=== PATIENT | female | born 1995 | race Caucasian/White ===

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

== ENCOUNTER 2018-12-01 18:51 | Emergency (ER) | payer BC ==
[~2018-12-01] VITALS: Ht 154.9 cm; Wt 41.4 kg
[~2018-12-01 18:51] MED LIST changes: +DESYREL 50MG50 MG PO; +ZITHROMAX500 M2 PO
[2018-12-01 19:15] VITALS: BP 118/90; TEMP 98.4
[2018-12-01] MEDS ORDERED: ZOVIRAX400 MG PO (19:46)
[2018-12-01 20:17] LABS: BASO % 0.3 % (0.0-2.0); EOS % 0.3 % (0-4.0); GRAN # 5.9 (1.4-6.5); GRAN % 64.1 % (42.2-75.2); HEMATOCRIT 45.2 % (37.0-47.0); HEMOGLOBIN 16.4 g/dl (12.5-16.0); LYMPH # 2.7 (1.2-3.4); MEAN CELL VOLUME 89 fl (80.0-100.0); MEAN CORPUSCULAR HEMOGLOBIN 32 pg (27.0-31.0); MEAN CORPUSCULAR HGB CONC 36 g/dl (33.0-37.0); MEAN PLATELET VOLUME 9.5 fl (7.4-10.4); MONO # 0.5 (0.1-0.6); MONO % 5.9 % (1.7-9.3); PLATELET COUNT 325 K/mm3 (130-400); REDCELL DISTRIBUTION WIDTH-CV 11.2 % (11.5-14.5)
[2018-12-01 20:30] LABS: ALANINE AMINOTRANSFERASE 32 U/L (9-52); ALBUMIN 4.6 gm/dL (3.5-5.0); ALKALINE PHOSPHATASE 98 U/L (50-136); ANION GAP 15 mmol/L (7-16); AST,SGOT 29 U/L (15-37); BILIRUBIN,TOTAL 0.6 mg/dL (0.0-1.0); BLOOD UREA NITROGEN 14 mg/dL (7-17); CALCIUM 9.8 mg/dL (8.4-10.2); CARBON DIOXIDE 24 mmol/L (22-30); CHLORIDE 95 mmol/L (98-107); CREATININE, serum 0.35 (0.52-1.25); GLUCOSE 292 mg/dL (74-106); LIPASE 33 U/L (23-300); POTASSIUM 3.6 mmol/L (3.4-5.0); SODIUM 134 mmol/L (137-145); TOTAL PROTEIN 7.8 gm/dL (6.4-8.2)
[2018-12-01 20:40] LABS: ACETONE,SERUM NEGATIVE
[2018-12-01 21:55] LABS: COLLECTION METHOD CLEAN CATCH
[2018-12-01] MEDS ORDERED: FREESTYLE PREC1 EAC5 MC (21:55)
[2018-12-01] MEDS ORDERED: NOVOLOG FLEX100 U/ML SQ (21:55)
[2018-12-01] MEDS ORDERED: LANTUS100 U/ML SQ (21:55)
[2018-12-01 22:14] LABS: PH 5 (5-8); URINE APPEARANCE Hazy; URINE BACTERIA Rare /hpf; URINE BILIRUBIN Negative (NEGATIVE); URINE BLOOD Negative (NEGATIVE); URINE COLOR Yellow; URINE GLUCOSE 3+ (NEGATIVE); URINE KETONE 2+ (NEGATIVE); URINE LEUKOCYTE ESTERASE Negative (NEGATIVE); URINE NITRATE Positive (NEGATIVE); URINE PROTEIN(semi-quant) Negative (NEGATIVE); URINE RBC 0-2 /hpf; URINE UROBILINOGEN Negative (NEGATIVE)
[2018-12-01 23:20] VITALS: PULSE 108
== END 2018-12-01 23:20 | disposition home or self-care (01) ==
LOC: COL.ER 18:51
PROVIDERS: Emergency Medicine
DX: R07.89 Other chest pain (principal); E11.9 Type 2 diabetes mellitus without complications; Z79.4 Long term (current) use of insulin
CPT/HCPCS: J1815; J7030

== ENCOUNTER 2019-06-04 12:08 | Emergency (ER) | payer BC ==
[~2019-06-04] VITALS: Ht 154.9 cm; Wt 42.7 kg
[~2019-06-04 12:08] MED LIST changes: +FREESTYLE PREC1 EAC5 MC; +LANTUS100 U/ML SQ; +NOVOLOG FLEX100 U/ML SQ; +ZOVIRAX400 MG PO
[2019-06-04 12:35] VITALS: TEMP 98.5
[2019-06-04 12:54] LABS: COLLECTION METHOD CLEAN CATCH
[2019-06-04 12:58] LABS: BASO # 0.1 (0.0-0.2); BASO % 0.7 % (0.0-2.0); EOS # 0.1 (0.0-0.7); EOS % 1.9 % (0-4.0); HEMATOCRIT 46.2 % (37.0-47.0); HEMOGLOBIN 16.7 g/dl (12.5-16.0); LYMPH # 2.4 (1.2-3.4); LYMPH % 33.1 % (20.0-51.0); MEAN CELL VOLUME 87 fl (80.0-100.0); MEAN CORPUSCULAR HEMOGLOBIN 32 pg (27.0-31.0); MEAN CORPUSCULAR HGB CONC 36 g/dl (33.0-37.0); MEAN PLATELET VOLUME 9.3 fl (7.4-10.4); MONO # 0.7 (0.1-0.6); MONO % 8.9 % (1.7-9.3); PLATELET COUNT 349 K/mm3 (130-400); REDCELL DISTRIBUTION WIDTH-CV 11.4 % (11.5-14.5)
[2019-06-04 13:01] LABS: PH 6 (5-8); URINE APPEARANCE Clear; URINE BACTERIA None Seen /hpf; URINE BILIRUBIN Negative (NEGATIVE); URINE BLOOD Negative (NEGATIVE); URINE COLOR Yellow; URINE GLUCOSE 3+ (NEGATIVE); URINE KETONE 1+ (NEGATIVE); URINE LEUKOCYTE ESTERASE Negative (NEGATIVE); URINE NITRATE Negative (NEGATIVE); URINE PROTEIN(semi-quant) Negative (NEGATIVE); URINE RBC None Seen /hpf; URINE UROBILINOGEN Negative (NEGATIVE)
[2019-06-04 13:10] LABS: ALANINE AMINOTRANSFERASE 44 U/L (4-34); ALBUMIN 4.7 gm/dL (3.5-5.0); ALKALINE PHOSPHATASE 97 U/L (50-136); ANION GAP 12 mmol/L (7-16); AST,SGOT 33 U/L (15-37); BILIRUBIN,TOTAL 1.1 mg/dL (0.0-1.0); BLOOD UREA NITROGEN 16 mg/dL (7-17); CALCIUM 9.7 mg/dL (8.4-10.2); CARBON DIOXIDE 24 mmol/L (22-30); CHLORIDE 96 mmol/L (98-107); GLUCOSE 399 mg/dL (74-106); POTASSIUM 4.1 mmol/L (3.4-5.0); SODIUM 132 mmol/L (137-145); TOTAL PROTEIN 7.9 gm/dL (6.4-8.2)
[2019-06-04 13:24] LABS: ACETONE,SERUM NEGATIVE
[2019-06-04] MEDS ORDERED: ZITHROMAX Z PA250 MG PO (14:30)
[2019-06-04 14:58] VITALS: BP 112/86; PULSE 110
== END 2019-06-04 14:56 | disposition home or self-care (01) ==
LOC: COL.ER 12:08
PROVIDERS: Nurse Practitioner
DX: J40 Bronchitis, not specified as acute or chronic (principal); E10.9 Type 1 diabetes mellitus without complications; Z91.14 Patient's other noncompliance with medication regimen
CPT/HCPCS: J1815; J7030

== ENCOUNTER 2023-03-13 18:08 | Inpatient (IN) | payer OTHER ==
[~2023-03-13] VITALS: Ht 154.9 cm; Wt 53.9 kg
[~2023-03-13 18:08] MED LIST changes: +MACROBID 1100 MG/CAP PO; +ZITHROMAX Z PA250 MG PO; +ZOFRAN ODT4 MG PO
[2023-03-13] MEDS ORDERED: NS 1,000 ML IV ONE ×2 (20:00→20:15)
[2023-03-13] MEDS ORDERED: Ondansetron 4 MG/2 ML VIAL IV ONE ×2 (20:00→20:15)
[2023-03-13] MEDS ORDERED: Ibuprofen 400 MG TAB PO ONE (20:15)
[2023-03-13] MEDS ORDERED: Acetaminophen 500 MG TAB PO ONE (20:15)
[2023-03-13 20:50] LABS: HEMATOCRIT 40.4 % (37.0-47.0); HEMOGLOBIN 13.5 g/dl (12.5-16.0); MEAN CELL VOLUME 91 fl (80.0-100.0); MEAN CORPUSCULAR HEMOGLOBIN 30 pg (27-31); MEAN CORPUSCULAR HGB CONC 33 g/dl (33.0-37.0); MEAN PLATELET VOLUME 10.3 fl (7.4-10.4); PLATELET COUNT 257 K/mm3 (130-400); RED BLOOD COUNT 4.46 M/mm3 (4.10-5.30); REDCELL DISTRIBUTION WIDTH-CV 12.2 % (11.5-14.5)
[2023-03-13 21:03] LABS: TRICYCLIC ANTIDEPRESS URINE NEGATIVE (NEGATIVE)
[2023-03-13 21:09] LABS: ALANINE AMINOTRANSFERASE 27 U/L (0-55); ALBUMIN 3.1 gm/dL (3.5-5.0); ALKALINE PHOSPHATASE 109 U/L (40-150); ANION GAP 15 mmol/L (7-16); AST,SGOT 14 U/L (5-34); BILIRUBIN,TOTAL 0.6 mg/dL (0.2-1.2); BLOOD UREA NITROGEN 15 mg/dL (7-19); CALCIUM 8.2 mg/dL (8.4-10.2); CHLORIDE 97 mmol/L (98-107); CREATININE, serum 0.91 mg/dL (0.57-1.11); GLUCOSE 303 mg/dL (70-99); LIPASE < 7 U/L (8-78); POTASSIUM 4.1 mmol/L (3.5-4.5); SODIUM 125 mmol/L (136-145); TOTAL PROTEIN 6.5 gm/dL (6.2-8.1)
[2023-03-13 21:11] LABS: COLLECTION METHOD CLEAN CATCH
[2023-03-13] MEDS ORDERED: Insulin Human Regular/NS 100 ML IV ONE (21:15)
[2023-03-13 21:17] LABS: BAND 17 % (0-10); LYMPHOCYTE 6 % (20.0-51.0); NEUTROPHILS 73 % (42.0-75.2); PLATELET ESTIMATE NORMAL (NORMAL)
[2023-03-13 21:33] LABS: PH 5.5 (5.0-8.5); URINE APPEARANCE Cloudy (CLEAR/HAZY); URINE BLOOD 1+ (NEGATIVE); URINE COLOR Yellow (YELLOW); URINE GLUCOSE 2+ (NEGATIVE); URINE KETONE 4+ (NEGATIVE); URINE NITRATE Positive (NEGATIVE); URINE PROTEIN(semi-quant) 2+ (NEGATIVE); URINE UROBILINOGEN 0.2 E.U/dL (0.2-1.0)
[2023-03-13 21:36] LABS: URINE BACTERIA Many /hpf (NONE SEEN)
[2023-03-13 21:38] LABS: CARBON DIOXIDE 13 mmol/L (22-29)
[2023-03-13] MEDS ORDERED: cefTRIAXone 1 G in Water For Injection,Sterile 10 ML IV ONE (22:00)
[2023-03-13 22:15] LABS: ACETONE,SERUM MODERATE
[2023-03-13] MEDS ORDERED: NS 1,000 ML IV SCH (22:30)
[2023-03-13] MEDS ORDERED: Insulin Human Regular/NS 100 ML IV SCH (22:30)
[2023-03-13] MEDS ORDERED: metroNIDAZOLE 250 MG TAB PO ONE (22:45)
[2023-03-13] MEDS ORDERED: Acetaminophen 325 MG TAB PO PRN (23:00)
[2023-03-13 23:05] LABS: INR 1.2 (0.8-3.0); PROTHROMBIN TIME 12.8 SECONDS (9.7-12.8)
[2023-03-13 23:18] LABS: PHOSPHOROUS 2.5 mg/dL (2.3-4.7)
--- NOTE | 2023-03-13 23:31 | NUR ---
RECEIVED REPORT FROM ED NURSE, NORM.
[2023-03-13] MEDS ORDERED: METRONIDAZOLE IV ONE (23:45)
[2023-03-13 23:46] VITALS: BP 94/55; PULSE 104; TEMP 98.6
--- NOTE | 2023-03-13 23:46 | NUR ---
Patient arrives to ICU room 1 via ED stretcher. Patient is drowsy but alert and oriented. Initial BP of 94/55; all other vitals within normal limits. She arrives receiving insulin drip at 5 units/hr, see IV drip titrations. Initial BG of 199 - insulin drip put on standby for 30 mins according to protocol and will resume at 3 units/hr.
[2023-03-14] VITALS (78 sets, daily range): BP systolic 80–96; BP diastolic 47–70; PULSE 101–124; TEMP 98.1–99.5; O2SAT 80–100
--- NOTE | 2023-03-14 00:25 | NUR ---
During patient's suicide risk assessment, patient admits to having suicidal thoughts within the last week. Patient states she has thought of a plan in the past but has not acted on said plan nor does she currently have intention of self harm or suicide. Patient denies current thoughts of self harm or suicide. Vikki notified. Orders received.
[2023-03-14] MEDS ORDERED: D5NS 1,000 ML IV SCH (00:30)
--- NOTE | 2023-03-14 01:00 | NUR ---
Patient's belongings include street clothes, a cell phone, and a black wallet. Patient has a navel piercing and a nose piercing, both of which have jewelery in place. Patient denies having other removable jewelry on her person. She denies having dentures, partials, plates, or hearing aids. She states she does normally wear glasses but that she did not bring them with her.
[2023-03-14 01:49] LABS: CALCIUM 7.1 mg/dL (8.4-10.2); CREATININE, serum 0.71 mg/dL (0.57-1.11); POTASSIUM 3.3 mmol/L (3.5-4.5)
[2023-03-14 01:51] LABS: SALICYLATE < 5.0 mg/dL (15.0-30.0)
[2023-03-14 03:22] LABS: CALCIUM 6.9 mg/dL (8.4-10.2); CREATININE, serum 0.69 mg/dL (0.57-1.11)
[2023-03-14 03:24] LABS: POTASSIUM 2.9 mmol/L (3.5-4.5)
[2023-03-14] MEDS ORDERED: Potassium Chloride 100 ML IV SCH ×2 (03:30→22:30)
[2023-03-14] MEDS ORDERED: *Potassium Replacement Protocol MC SCH (03:30)
[2023-03-14] MEDS ORDERED: Ondansetron 4 MG/2 ML VIAL IV PRN (05:45)
[2023-03-14 06:19] LABS: HEMOGLOBIN 12.5 g/dl (12.5-16.0); MEAN CELL VOLUME 87 fl (80.0-100.0); MEAN CORPUSCULAR HEMOGLOBIN 30 pg (27-31); MEAN CORPUSCULAR HGB CONC 35 g/dl (33.0-37.0); MEAN PLATELET VOLUME 9.5 fl (7.4-10.4); PLATELET COUNT 210 K/mm3 (130-400); RED BLOOD COUNT 4.15 M/mm3 (4.10-5.30); REDCELL DISTRIBUTION WIDTH-CV 11.9 % (11.5-14.5)
[2023-03-14 06:28] LABS: HEMATOCRIT 35.9 % (37.0-47.0)
[2023-03-14 06:38] LABS: CALCIUM 7.1 mg/dL (8.4-10.2); CREATININE, serum 0.68 mg/dL (0.57-1.11); POTASSIUM 3.6 mmol/L (3.5-4.5)
--- NOTE | 2023-03-14 07:00 | NUR ---
Report received from MERI Karimi; patient currently resting in bed with eyes closed. Patient is on insulin drip and also getting fluids and potassium replaced, all through her peripheral line. Patient is on room air; no other lines or tubes are in place at this time. Patient's vital signs are within normal limits and patient is stable.
[2023-03-14 07:07] LABS: BAND 37 % (0-10); LYMPHOCYTE 1 % (20.0-51.0)
[2023-03-14 07:08] LABS: NEUTROPHILS 59 % (42.0-75.2); PLATELET ESTIMATE NORMAL (NORMAL)
[2023-03-14 07:50] LABS: MAGNESIUM 1.7 mg/dL (1.6-2.6); PHOSPHOROUS 0.9 mg/dL (2.3-4.7)
[2023-03-14] MEDS ORDERED: Morphine 4 MG/ML VIAL IV ONE (08:45)
[2023-03-14 11:40] LABS: ANION GAP 3 mmol/L (7-16); BLOOD UREA NITROGEN 11 mg/dL (7-19); CARBON DIOXIDE 15 mmol/L (22-29); CHLORIDE 112 mmol/L (98-107); CREATININE, serum 0.63 mg/dL (0.57-1.11); GLUCOSE 119 mg/dL (70-99); MAGNESIUM 1.6 mg/dL (1.6-2.6); PHOSPHOROUS < 0.9 mg/dL (2.3-4.7); POTASSIUM 4.1 mmol/L (3.5-4.5); SODIUM 130 mmol/L (136-145)
[2023-03-14] MEDS ORDERED: NS 1,000 ML IV SCH ×2 (11:45→16:00)
[2023-03-14] MEDS ORDERED: [UNRECOGNIZED DRUG - OTHER] IV ONE ×2 (12:00→16:00)
[2023-03-14] MEDS ORDERED: NS IV ONE ×3 (12:00→16:00)
[2023-03-14] MEDS ORDERED: SODIUM PHOSPHATE IV ONE ×3 (12:00→16:00)
[2023-03-14] MEDS ORDERED: Dextrose 50% Water 25 GM/50 ML SYRINGE IV PRN (13:15)
[2023-03-14] MEDS ORDERED: Dextrose (Glucose) 15 GM (4 x 3.75 GM) Chewable TABLET PACK PO PRN (13:15)
[2023-03-14] MEDS ORDERED: Glucagon 1 MG VIAL IM PRN (13:15)
[2023-03-14] MEDS ORDERED: Iohexol 300 - 100 ML VIAL IV ONE (13:27)
[2023-03-14] MEDS ORDERED: Acetaminophen 325 MG TAB PO PRN (15:00)
[2023-03-14] MEDS ORDERED: Morphine 4 MG/ML VIAL IV PRN (15:00)
[2023-03-14] MEDS ORDERED: oxyCODONE 5 MG TAB PO PRN (15:00)
--- NOTE | 2023-03-14 15:57 | NUR ---
Groundskeeper Supervisor met briefly with patient to complete initial intake. Patient was agreeable to answer questions but had difficulty keeping her eyes open and spoke softly. Patient lives alone in [place] and is not established with a primary care physician at this time. Patient works at [employer] and as of 02/24/23 she has insurance through [employer]. Patient advised she had difficulty affording her medications and insulin before she had insurance, and is not sure what will now be covered. Patient advised she is not and has no children. Patient is adopted and her adoptive parents are Andrew and Effie, who live a couple hours away. Patient stated her brother, Rubin (ph#[phone]) is the best point of contact for her. SW will continue to follow for discharge planning needs.
[2023-03-14] MEDS ORDERED: Insulin Aspart (NovoLOG) SQ SCH ×2 (17:00)
--- NOTE | 2023-03-14 19:45 | NUR ---
Patient sleeping quietly in bed. SBPs mid-high 90s; MAPs maintaining 65 or better. Oral temp of 99.2 - all other vitals within normal limits. She remains on room air, tolerating well. Continues to receive IVF and antibiotics. Sodium phosphate still infusing at this time. Patient assisted to commode with SBA; patient tolerated activity well. Gait steady.
[2023-03-14] MEDS ORDERED: cefTRIAXone 1 G in Water For Injection,Sterile 10 ML IV SCH (20:00)
[2023-03-14 20:10] LABS: CALCIUM 6.4 mg/dL (8.4-10.2); CREATININE, serum 0.58 mg/dL (0.57-1.11); MAGNESIUM 1.6 mg/dL (1.6-2.6); POTASSIUM 3.3 mmol/L (3.5-4.5)
[2023-03-14] MEDS ORDERED: Potassium Phoshate 10 MM in NS 250 ML IV ONE (20:15)
[2023-03-14 20:19] LABS: TROPONIN-I 0.076 ng/mL (0.00-0.033)
[2023-03-14 23:21] LABS: CALCIUM 7.1 mg/dL (8.4-10.2); CREATININE, serum 0.56 mg/dL (0.57-1.11); MAGNESIUM 1.9 mg/dL (1.6-2.6); PHOSPHOROUS 2.5 mg/dL (2.3-4.7); POTASSIUM 3.6 mmol/L (3.5-4.5)
[2023-03-14] MEDS ORDERED: LR 1,000 ML IV ONE (23:30)
[2023-03-14] MEDS ORDERED: LR 1,000 ML IV SCH (23:30)
[2023-03-15] VITALS: BP 95/63; PULSE 125; TEMP 99.7
[2023-03-15 04:00] VITALS: BP 96/68; PULSE 113; TEMP 99.1
[2023-03-15 04:43] LABS: BASO # 0.1 K/mm3 (0.0-0.2); BASO % 0.3 % (0.0-2.0); EOS % 0.1 % (0.0-4.0); GRAN % 78.7 % (42.2-75.2); HEMOGLOBIN 10.9 g/dl (12.5-16.0); LYMPH # 1.7 K/mm3 (1.2-3.4); LYMPH % 11.2 % (20.0-51.0); MEAN CELL VOLUME 88 fl (80.0-100.0); MEAN CORPUSCULAR HEMOGLOBIN 30 pg (27-31); MEAN CORPUSCULAR HGB CONC 34 g/dl (33.0-37.0); MEAN PLATELET VOLUME 9.9 fl (7.4-10.4); MONO # 1.3 K/mm3 (0.1-0.6); MONO % 8.6 % (1.7-9.3); PLATELET COUNT 215 K/mm3 (130-400); RED BLOOD COUNT 3.64 M/mm3 (4.10-5.30); REDCELL DISTRIBUTION WIDTH-CV 12.3 % (11.5-14.5)
[2023-03-15 04:49] LABS: HEMATOCRIT 31.9 % (37.0-47.0)
[2023-03-15 04:56] LABS: ANION GAP 5 mmol/L (7-16); BLOOD UREA NITROGEN < 5 mg/dL (7-19); CARBON DIOXIDE 15 mmol/L (22-29); CHLORIDE 111 mmol/L (98-107); CREATININE, serum 0.51 mg/dL (0.57-1.11); PHOSPHOROUS 1.3 mg/dL (2.3-4.7); POTASSIUM 3.2 mmol/L (3.5-4.5); SODIUM 131 mmol/L (136-145)
[2023-03-15 05:10] LABS: GLUCOSE 67 mg/dL (70-99); TROPONIN-I < 0.010 ng/mL (0.00-0.033)
[2023-03-15] MEDS ORDERED: Potassium Phoshate 30 MM in NS 250 ML IV ONE (06:00)
--- NOTE | 2023-03-15 07:00 | NUR ---
Report received from MERI Karimi. Pt appears to be sleeping at this time. No s/s discomfort. Pt did have some low blood sugars overnight but stable this AM. Pt recently received zofran for nausea. Call light in reach.
[2023-03-15 08:00] VITALS: BP 130/74; PULSE 107; TEMP 99.9
[2023-03-15] MEDS ORDERED: Potassium Phoshate 40 MM in NS 250 ML IV ONE (09:00)
[2023-03-15 10:10] VITALS: BP 103/66; PULSE 105; TEMP 99.3
--- NOTE | 2023-03-15 10:36 | NUR ---
Patient arrived to the medical unit, room 310, alert and oriented x 4, tachycardic 105, temp 99.3, BP 103/66. Getting 150 ml/hr LR. Assessment completed.
[2023-03-15 15:46] VITALS: BP 104/67; PULSE 106; TEMP 98.6
[2023-03-15 19:36] VITALS: BP 108/66; PULSE 109; TEMP 99.2
--- NOTE | 2023-03-15 22:28 | NUR ---
NURSING SHIFT ASSESSMENT COMPLETED. THE PATIENT WAS ALERT AND ORIENTED. NO S/S OF DISTRESS NOTED. THE PATIENT DENIED N/V AND STATED THAT SHE TOLERATED HER DINNER WELL. THE PATIENT DENIED PAIN OR OTHER CONCERNS AT THIS TIME. THE PLAN OF CARE AND EVENING MEDICATIONS REVIEWED. CALL LIGHT AND PERSONAL BELONGINGS WITHIN REACH. BED IN LOW POSITION.
[2023-03-16] VITALS (7 sets, daily range): BP systolic 102–116; BP diastolic 57–79; PULSE 95–111; TEMP 97.9–98.9
[2023-03-16 09:01] LABS: BASO % 0.4 % (0.0-2.0); EOS # 0.1 K/mm3 (0.0-0.7); EOS % 1.8 % (0.0-4.0); GRAN # 5.2 K/mm3 (1.4-6.5); GRAN % 67.9 % (42.2-75.2); LYMPH # 1.3 K/mm3 (1.2-3.4); LYMPH % 16.9 % (20.0-51.0); MEAN CELL VOLUME 85 fl (80.0-100.0); MEAN CORPUSCULAR HEMOGLOBIN 30 pg (27-31); MEAN CORPUSCULAR HGB CONC 35 g/dl (33.0-37.0); MEAN PLATELET VOLUME 10.2 fl (7.4-10.4); MONO # 0.9 K/mm3 (0.1-0.6); MONO % 12.2 % (1.7-9.3); PLATELET COUNT 205 K/mm3 (130-400); RED BLOOD COUNT 3.35 M/mm3 (4.10-5.30); REDCELL DISTRIBUTION WIDTH-CV 12.2 % (11.5-14.5)
[2023-03-16 09:06] LABS: HEMATOCRIT 28.5 % (37.0-47.0)
[2023-03-16 09:33] LABS: ANION GAP 9 mmol/L (7-16); BLOOD UREA NITROGEN < 5 mg/dL (7-19); CALCIUM 7.1 mg/dL (8.4-10.2); CARBON DIOXIDE 15 mmol/L (22-29); CHLORIDE 107 mmol/L (98-107); CREATININE, serum 0.48 mg/dL (0.57-1.11); GLUCOSE 145 mg/dL (70-99); MAGNESIUM 1.5 mg/dL (1.6-2.6); PHOSPHOROUS 1.6 mg/dL (2.3-4.7); POTASSIUM 3.3 mmol/L (3.5-4.5); SODIUM 131 mmol/L (136-145)
[2023-03-16] MEDS ORDERED: Magnesium Sulfate 8% 50 ML IV ONE (13:15)
--- NOTE | 2023-03-16 13:53 | NUR ---
Tele initiated for IV Magnesium replacement. Potassium replaced per protocol. Pt denies pain or needs at this time.
[2023-03-16] MEDS ORDERED: Sodium Bicarbonate 650 MG TAB PO SCH (14:00)
[2023-03-16] MEDS ORDERED: Magnesium Oxide 400 MG TAB PO SCH (17:00)
--- NOTE | 2023-03-16 19:14 | NUR ---
Patient denied pain or needs throughout the day. LR decreased to 75ml/hr per MD order. Replaced K+ and Mg+ as ordered. Appetite and fluid intake adequate. Independent in room.
--- NOTE | 2023-03-16 20:00 | NUR ---
PATIENT IS A&O. NOTED ELEVATED HR OF 109-110 ON TELE, ALL OTHER VSS. PATIENT REPORTS SHE STARTED HER PERIOD AND IS HAVING MILD CRAMPS. PRN TYLENOL GIVEN. PATIENT CURRENTLY ON ABX FOR STD WELL PYELO. IV FLUIDS INFUSING VIA PUMP INTO RIGHT UPPER ARM PICC. HS BS WAS 125, NO SSI REQUIRED. PATIENT REPORTS HER INSURANCE WASN'T AFFECTIVE TILL FEB AND HAD NOT BEEN TAKING HER INSULIN AT HOME. UPON DISCHARGE, PATIENT WILL NEED TO BE SET UP WITH A PCP. HS MEDS GIVEN. HEAD TO TOE ASSESSMENT COMPLETE. INDEPENDENT IN ROOM. NO OTHER NEEDS AT THIS TIME. CALL LIGHT IN REACH.
--- NOTE | 2023-03-16 21:00 | NUR ---
AFTER ROUNDING ON ALL PATIENTS AND RN STARTED LOOKING THROUGH ORDERS, PATIENT WAS FOUND TO HAVE ACTIVE SUICIDE PRECAUTION ORDERS. PATIENT VERBALIZES LOW RISK AT THIS TIME HOWEVER IS REPORTED TO HAVE HAD SUICIDAL THOUGHTS WITH A PLAN WITHIN THE LAST WEEK, CURRENTLY DENIES HAVING THESE THOUGHTS OR A PLAN. CHARGE NURSE, HOSPITALIST & CARAMEL MAKER NOTIFIED. PLAN IS TO HAVE PSYCH TELEHEALTH SCREEN BEFORE DISCHARGE, SEE HOSPITALIST NOTES. HOSPITALIST AGREED NO SITTER, CHOE GOWN AND STAFF DIDN'T NEED TO REMOVE HER PERSONAL BELONGINGS LIKE HER CELL PHONE AT THIS TIME. PATIENT CURRENTLY RESTING IN BED WITH NO NEEDS. CALL LIGHT IN REACH.
[2023-03-17 02:52] VITALS: BP 114/80; PULSE 102; TEMP 98.3
[2023-03-17 07:10] VITALS: BP 108/71; PULSE 102; TEMP 98.6
[2023-03-17 07:20] LABS: BASO % 0.4 % (0.0-2.0); EOS # 0.2 K/mm3 (0.0-0.7); EOS % 2.3 % (0.0-4.0); GRAN # 4.9 K/mm3 (1.4-6.5); GRAN % 64.9 % (42.2-75.2); HEMOGLOBIN 10.9 g/dl (12.5-16.0); LYMPH # 1.4 K/mm3 (1.2-3.4); MEAN CELL VOLUME 84 fl (80.0-100.0); MEAN CORPUSCULAR HEMOGLOBIN 30 pg (27-31); MEAN CORPUSCULAR HGB CONC 36 g/dl (33.0-37.0); MEAN PLATELET VOLUME 9.5 fl (7.4-10.4); MONO % 13.2 % (1.7-9.3); PLATELET COUNT 269 K/mm3 (130-400); RED BLOOD COUNT 3.63 M/mm3 (4.10-5.30); REDCELL DISTRIBUTION WIDTH-CV 12.2 % (11.5-14.5)
[2023-03-17 07:23] LABS: HEMATOCRIT 30.5 % (37.0-47.0)
[2023-03-17 08:05] LABS: ANION GAP 9 mmol/L (7-16); BLOOD UREA NITROGEN < 5 mg/dL (7-19); CALCIUM 7.4 mg/dL (8.4-10.2); CARBON DIOXIDE 20 mmol/L (22-29); CHLORIDE 104 mmol/L (98-107); CREATININE, serum 0.54 mg/dL (0.57-1.11); GLUCOSE 96 mg/dL (70-99); MAGNESIUM 2.1 mg/dL (1.6-2.6); PHOSPHOROUS 2.5 mg/dL (2.3-4.7); POTASSIUM 3.5 mmol/L (3.5-4.5); SODIUM 133 mmol/L (136-145)
[2023-03-17] MEDS ORDERED: MAG-OX 400400 MG/TAB PO (08:49)
[2023-03-17] MEDS ORDERED: LEVAQUIN 750MG750 M1 PO (08:56)
[2023-03-17] MEDS ORDERED: NOVOLOG FLEX100 U/ML SQ (08:59)
[2023-03-17] MEDS ORDERED: levoFLOXacin 750 MG TAB PO SCH (09:00)
[2023-03-17] MEDS ORDERED: LEVEMIR FLEX100 U/ML SQ (09:11)
[2023-03-17] MEDS ORDERED: LANTUS SOLOS100 U/ML SQ (09:11)
--- NOTE | 2023-03-17 10:47 | NUR ---
SW was notified of pt needing PCP list and MH resources due to suicidial ideation concerns. Per RN Lu, Dr. Sheikh's note reports denial of SI, no further psych eval needed per RN. MIMI met with pt and provided [facility] PCP list. Pt would like to go to [facility]. SW informed [facility]. [facility] has appointments into April and pt needs to be seen sooner. Pt chose [facility] for PCP needs. SW provided MH list, highlighted virtual vs in person options. Pt was agreeable to review. Discharge Plan: Home
--- NOTE | 2023-03-17 10:50 | NUR ---
Assessment completed this morning. Showered this morning. Denies pain or needs at this time.
[2023-03-17 11:54] VITALS: BP 102/68; PULSE 96; TEMP 98.3
--- NOTE | 2023-03-17 14:57 | NUR ---
Discharge instructions reviewed with patient-verbalizes understanding. PICC line removed by AIVS and patient remained flat for 30 minutes. Dressing CDI. Pt escorted to private vehicle via w/c and discharged home with brother.
== END 2023-03-17 14:59 | disposition home or self-care (01) | DRG 871 ==
LOC: COL.ER 18:08 → MEDICAL 22:37 → ICU 22:37 → MEDICAL 03-15 10:06
PROVIDERS: Internal Medicine; Nurse Practitioner Family; Physician Assistant; ADMIT Internal Medicine
PROC: 02HV33Z Insertion of Infusion Device into Superior Vena Cava, Percutaneous Approach (ICD-10-PCS; principal; 2023-03-14)
DX: A41.9 Sepsis, unspecified organism (principal); E10.10 Type 1 diabetes mellitus with ketoacidosis without coma; N12 Tubulo-interstitial nephritis, not specified as acute or chronic; E87.1 Hypo-osmolality and hyponatremia; R45.851 Suicidal ideations; A59.9 Trichomoniasis, unspecified; E83.39 Other disorders of phosphorus metabolism; Z91.141 Patient's other noncompliance with medication regimen due to financial hardship
CPT/HCPCS: C1751; C1892; J0612; J0696; J0780; J1650; J1815; J1836; J2270; J2405; J2543; J3475; J3480; J7030; J7040; J7042; J7050; J7120; Q9967